=== PATIENT | male | born 1995 | race Hispanic/Latino ===

== ENCOUNTER 2017-04-28 09:24 | Day surgery (SDC) | payer MEDICARE ==
[2017-04-27 17:27] VITALS: BP 151/92
[2017-04-27 17:30] LABS: BASOPHILS % (AUTO) 0.2 % (0.0-5.0); EOSINOPHILS % (AUTO) 4.7 % (0.0-8.0); HEMATOCRIT 34.5 % (42-54); LYMPHOCYTES % (AUTO) 30.8 % (21.0-51.0); MEAN CORPUSCULAR HEMOGLOBIN 34.8 pg (27.0-33.0); MEAN CORPUSCULAR HGB CONC 35.1 g/dL (32.0-36.0); MEAN CORPUSCULAR VOLUME 99.2 fL (80-100); MONOCYTES % (AUTO) 3.4 % (3.0-13.0); NEUTROPHILS % (AUTO) 60.9 % (40.0-77.0); NUCLEATED RED BLOOD CELLS 0.1 % (0.0-0.19); PLATELET COUNT (AUTO) 225 K/uL (130-400); RED BLOOD CELL COUNT(AUTO) 3.48 MIL/uL (4.50-6.20)
[2017-04-27 17:45] LABS: POTASSIUM 5.1 mmol/L (3.5-5.1)
[2017-04-27 17:47] LABS: CREATININE 12.5 mg/dL (0.5-1.5)
[2017-04-27 18:11] LABS: INR 1.04 (0.85-1.15); PARTIAL THROMBOPLASTIN TIME 26.4 SEC (26.3-35.5); PROTHROMBIN TIME 10.9 SEC (9.6-11.6)
[~2017-04-28] VITALS: Ht 160 cm; Wt 60.1 kg
[~2017-04-28 09:24] MED LIST: AMLO10TA2 PO; LEVE250T2 PO; SERT50TA12 PO; SEVE800T7 PO
[2017-04-28 09:39] VITALS: BP 138/87
[2017-04-28] MEDS ORDERED: SODIUM CHLORIDE 0.9% 1000ML 1,000 ML IV ONE (10:19)
[2017-04-28] MEDS ORDERED: ISOVUE-300 100 ML VIAL IV ONE (11:31)
[2017-04-28] MEDS ORDERED: LIDOCAINE HCL 1% MDV 50ML VIAL ONE (11:32)
[2017-04-28] MEDS ORDERED: ALTEPLASE 2 MG/2 ML IVCATH ONE (11:33)
[2017-04-28] MEDS ORDERED: HEPARIN SODIUM 1000UNIT/ML 10ML VIAL ONE (12:36)
[2017-04-28 13:10] VITALS: BP 133/78
[2017-04-28 13:25] VITALS: BP 129/77
[2017-04-28 13:37] VITALS: BP 140/91
== END 2017-04-28 13:40 | disposition home or self-care (01) ==
LOC: DAH 09:24
PROVIDERS: ATTEND Surgery
DX: T82.590A Other mechanical complication of surgically created arteriovenous fistula, initial encounter (principal); D64.9 Anemia, unspecified; I12.9 Hypertensive chronic kidney disease with stage 1 through stage 4 chronic kidney disease, or unspecified chronic kidney disease; N18.9 Chronic kidney disease, unspecified; G43.909 Migraine, unspecified, not intractable, without status migrainosus; Z79.899 Other long term (current) drug therapy
CPT/HCPCS: 36415; 36905; 80048; 85025; 85610; 85730; A4606; C1725; C1757; C1769 ×2; C1894 ×2; J1644 ×2; J2997; J3490; J7030; Q9967

== ENCOUNTER 2019-10-02 17:08 | Inpatient (IN) | payer MEDICARE ==
[~2019-10-02] VITALS: Ht 162.6 cm; Wt 62.9 kg
[2019-10-02] MEDS: CEFEPIME 2 GM in SODIUM CHLORIDE 0.9% 100 ML IV SCH (08:15)
[2019-10-02] MEDS: FAMOTIDINE/PF 20 MG/2 ML VIAL IV SCH (09:00)
[2019-10-02] MEDS: METRONIDAZOLE 500MG/100ML BAG 100 ML IVPB SCH (12:14)
[~2019-10-02 17:08] MED LIST changes: -AMLO10TA2 PO; +AMLO10TA7 PO
[2019-10-02] MEDS ORDERED: SODIUM CHLORIDE 0.9% 1000ML 1,000 ML IV ONE (18:03)
[2019-10-02] MEDS ORDERED: ONDANSETRON HCL 4 MG/2 ML VIAL ONE (18:03)
[2019-10-02] MEDS ORDERED: ZOSYN 3.375GM+NS 50ML 50 ML IV ONE (19:35)
[2019-10-02] MEDS ORDERED: SODIUM CHLORIDE 0.9% 1000ML 1,000 ML IV SCH (20:10)
[2019-10-02] MEDS ORDERED: MORPHINE SULFATE 4 MG/1ML SYG IV PRN (20:15)
[2019-10-02] MEDS ORDERED: MORPHINE SULFATE 2 MG/ML 1ML SYG IV PRN (20:15)
[2019-10-02] MEDS ORDERED: NITROGLYCERIN 0.4 MG SL TAB SL PRN (20:15)
[2019-10-02] MEDS ORDERED: ZOLPIDEM TARTRATE 5 MG TAB PO PRN (20:15)
[2019-10-02] MEDS ORDERED: DiphenhydrAMINE HCL 50 MG/ML VIAL IV PRN (20:15)
[2019-10-02] MEDS ORDERED: MAG HYDROX/AL HYDROX/SIMETH 30 ML, LIDOCAINE HCL 2% VISCOUS 30 ML, DIPHENHYDRAMINE HCL ... PO PRN ×3 (20:15)
[2019-10-02] MEDS ORDERED: MAG HYDROX/AL HYDROX/SIMETH ES 30 ML SUSP UDCUP PO PRN (20:15)
[2019-10-02] MEDS ORDERED: ONDANSETRON HCL 4 MG/2 ML VIAL IV PRN (20:15)
[2019-10-02] MEDS ORDERED: VANCOMYCIN PROTOCOL PER PHARMACY IV PRN (20:15)
[2019-10-02] MEDS ORDERED: ACETAMINOPHEN 325 MG TAB PO PRN (20:15)
[2019-10-02] MEDS ORDERED: DIPHENHYDRAMINE HCL 25 MG CAPSULE PO PRN (20:15)
[2019-10-02] MEDS ORDERED: LACTULOSE 20 GM/30 ML UDCUP PO PRN (20:15)
[2019-10-02] MEDS ORDERED: GUAIFENESIN-DM 200/20 MG 10 ML PO PRN (20:15)
[2019-10-02] MEDS ORDERED: VANCOMYCIN 1GM+NS 250ML 250 ML IV SCH (21:00)
[2019-10-02] MEDS ORDERED: FAMOTIDINE/PF 20 MG/2 ML VIAL IV ONE (21:14)
[2019-10-02] MEDS ORDERED: CEFEPIME HCL 2 GM VIAL ONE (21:14)
[2019-10-02] MEDS ORDERED: METRONIDAZOLE 500MG/100ML BAG 100 ML ONE (21:14)
[2019-10-02] MEDS ORDERED: ACETAMINOPHEN 325 MG TAB ONE (22:25)
[2019-10-03] MEDS: METRONIDAZOLE 500MG/100ML BAG 100 ML IVPB SCH ×3 (04:15→20:39)
[2019-10-03] MEDS ORDERED: METRONIDAZOLE 500MG/100ML BAG 100 ML ONE ×2 (04:37→12:13)
[2019-10-03] MEDS ORDERED: ACETAMINOPHEN 325 MG TAB ONE (05:52)
[2019-10-03] MEDS ORDERED: CEFEPIME HCL 2 GM VIAL ONE ×2 (08:13→18:26)
[2019-10-03] MEDS: CEFEPIME 2 GM in SODIUM CHLORIDE 0.9% 100 ML IV SCH ×2 (08:15→20:38)
[2019-10-03] MEDS ORDERED: PANTOPRAZOLE SODIUM 80 MG in NS 100ML IVP SCH (08:30)
[2019-10-03] MEDS ORDERED: PANTOPRAZOLE 40 MG/VIAL IVP SCH (08:30)
[2019-10-03] MEDS: ENOXAPARIN SODIUM 40 MG/0.4 ML SYRINGE SQ SCH (09:00)
[2019-10-03] MEDS: FAMOTIDINE/PF 20 MG/2 ML VIAL IV SCH ×2 (09:00→20:39)
[2019-10-03] MEDS: IRON SUCROSE COMPLEX 100 MG in SODIUM CHLORIDE 0.9% 50 ML IV SCH (09:43)
[2019-10-03] MEDS ORDERED: COMPOUND IV MISC 1 EACH IVSOLN MISC PRN (09:45)
[2019-10-03] MEDS ORDERED: VANCOMYCIN 1GM+NS 250ML 250 ML IV ONE (10:04)
[2019-10-03] MEDS ORDERED: FAMOTIDINE/PF 20 MG/2 ML VIAL IV ONE (10:05)
[2019-10-03 13:45] VITALS: BP 130/76
--- NOTE | 2019-10-03 14:50 | NUR ---
DUNIA NOTE/IA UNABLE TO MEET WITH PATIENT IN ROOM, NEXT OF KIN CALLED, XI AGATHA. 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 Addendum: 10/04/19 at 7100 by NOLVIA RANKIN RN CM Amended: Links added.
[2019-10-03 16:00] VITALS: BP 103/60
[2019-10-03] MEDS ORDERED: PRED5TAB PO (16:02)
[2019-10-03] MEDS ORDERED: FAMO20TA8 PO (16:02)
[2019-10-03] MEDS ORDERED: VALG450T3 PO (16:02)
[2019-10-03] MEDS ORDERED: ASPI-1197 PO (16:02)
[2019-10-03] MEDS ORDERED: MYCO360T3 PO (16:02)
[2019-10-03] MEDS ORDERED: TACR1 PO (16:02)
[2019-10-03] MEDS ORDERED: LEVE500T19 PO (16:02)
[2019-10-03] MEDS ORDERED: TACROLIMUS 1 MG CAPSULE ONE (18:27)
[2019-10-03 19:39] VITALS: BP 108/63
[2019-10-03] MEDS: 1/2 NORMAL SALINE 1,000 ML IV SCH ×2 (19:45→20:38)
[2019-10-03] MEDS: MYCOPHENOLATE SODIUM 360 MG PO SCH (20:39)
[2019-10-03] MEDS: TACROLIMUS 1 MG CAPSULE PO SCH (20:39)
[2019-10-03] MEDS: ACETAMINOPHEN 325 MG TAB PO PRN (20:57)
--- NOTE | 2019-10-03 23:25 | NUR ---
NPO Pt is aware of Npo status for EGD in am.
[2019-10-03 23:53] VITALS: BP 108/59
[2019-10-04] VITALS (18 sets, daily range): BP systolic 101–127; BP diastolic 53–89
--- NOTE | 2019-10-04 02:52 | NUR ---
AFEBRILE Pt.s been afebrile this shift.
[2019-10-04] MEDS: METRONIDAZOLE 500MG/100ML BAG 100 ML IVPB SCH ×3 (03:08→21:23)
[2019-10-04] MEDS: 1/2 NORMAL SALINE 1,000 ML IV SCH ×2 (05:11→15:45)
--- NOTE | 2019-10-04 06:51 | NUR ---
GI LAB Pt taken to GI lab per tech.
[2019-10-04] MEDS ORDERED: PROPOFOL 10 MG/ML 20ML VIAL IV ONE (07:23)
[2019-10-04] MEDS ORDERED: GLYCOPYRROLATE 1 MG/5 ML SYRINGE ONE (07:24)
[2019-10-04] MEDS: CEFEPIME 2 GM in SODIUM CHLORIDE 0.9% 100 ML IV SCH ×2 (08:15→21:23)
[2019-10-04] MEDS: MYCOPHENOLATE SODIUM 360 MG PO SCH ×2 (09:00→21:00)
[2019-10-04] MEDS: FAMOTIDINE/PF 20 MG/2 ML VIAL IV SCH ×2 (09:00→21:23)
[2019-10-04] MEDS: TACROLIMUS 1 MG CAPSULE PO SCH ×2 (09:00→21:24)
[2019-10-04] MEDS: ENOXAPARIN SODIUM 40 MG/0.4 ML SYRINGE SQ SCH (09:00)
[2019-10-04] MEDS: IRON SUCROSE COMPLEX 100 MG in SODIUM CHLORIDE 0.9% 50 ML IV SCH (16:21)
[2019-10-04] MEDS: ACETAMINOPHEN 325 MG TAB PO PRN (22:03)
--- NOTE | 2019-10-05 00:18 | NUR ---
TRANSFERRED PT FROM ROOM 314 TO 310. SCIENCE AND OPERATIONS OFFICER AND MH TEACHER MADE AWARE.
[2019-10-05 04:02] VITALS: BP 118/73
[2019-10-05] MEDS: METRONIDAZOLE 500MG/100ML BAG 100 ML IVPB SCH (04:14)
[2019-10-05 08:14] VITALS: BP 123/76
[2019-10-05] MEDS: MYCOPHENOLATE SODIUM 360 MG PO SCH (09:00)
[2019-10-05] MEDS: TACROLIMUS 1 MG CAPSULE PO SCH (09:00)
[2019-10-05] MEDS: ENOXAPARIN SODIUM 40 MG/0.4 ML SYRINGE SQ SCH (09:00)
[2019-10-05] MEDS: FAMOTIDINE/PF 20 MG/2 ML VIAL IV SCH (09:38)
[2019-10-05] MEDS: IRON SUCROSE COMPLEX 100 MG in SODIUM CHLORIDE 0.9% 50 ML IV SCH (10:11)
--- NOTE | 2019-10-05 11:00 | NUR ---
lovenox pt refused to get lovenox injection
[2019-10-05 11:28] VITALS: BP 104/69
[2019-10-05] MEDS: CEFEPIME 2 GM in SODIUM CHLORIDE 0.9% 100 ML IV SCH (11:31)
[2019-10-05] MEDS ORDERED: METO5 PO (16:12)
[2019-10-05 16:18] VITALS: BP 121/76
--- NOTE | 2019-10-05 18:07 | NUR ---
DISCHARGE INSTRUCTIONS discussed discharge instructions with pt voices understanding of follow up and labs needed after discharge work release given to pt as requested
== END 2019-10-05 18:05 | disposition home or self-care (01) | DRG 871 ==
LOC: EDH 17:08 → EDHIP 20:10 → 3CH 10-03 13:11 → 3BH 10-05
PROVIDERS: ADMIT Internal Medicine; ATTEND Internal Medicine
PROC: 0DJ08ZZ Inspection of Upper Intestinal Tract, Via Natural or Artificial Opening Endoscopic (ICD-10-PCS; principal; 2019-10-04)
DX: A41.9 Sepsis, unspecified organism (principal); K29.51 Unspecified chronic gastritis with bleeding; Z94.0 Kidney transplant status; D62 Acute posthemorrhagic anemia; N17.9 Acute kidney failure, unspecified; T86.19 Other complication of kidney transplant; E86.9 Volume depletion, unspecified; K31.84 Gastroparesis; D64.9 Anemia, unspecified; R53.81 Other malaise; B34.9 Viral infection, unspecified; N27.1 Small kidney, bilateral; K52.9 Noninfective gastroenteritis and colitis, unspecified; Y83.0 Surgical operation with transplant of whole organ as the cause of abnormal reaction of the patient, or of later complication, without mention of misadventure at the time of the procedure; Y92.89 Other specified places as the place of occurrence of the external cause; Z88.6 Allergy status to analgesic agent; Z03.818 Encounter for observation for suspected exposure to other biological agents ruled out
CPT/HCPCS: 36415; 43235; 71045; 80053; 80197; 81001; 83540; 83550; 83605; 84145; 85014; 85018; 85025; 85610; 85730; 86606; 86612; 86635; 86665; 86698; 87040; 87046; 87088; 87324; 87426; 87486; 87529; 87581; 87633; 87798; A4606; C9113; G0378; J0692; J1650; J1756; J2405; J2543; J2704; J3370; J3490; J7030; J7507; U0003